=== PATIENT | female | born 2000 | race Caucasian/White ===

== ENCOUNTER 2018-05-21 08:30 | Emergency (ER) | payer OTHER ==
[2018-05-21] MEDS ORDERED: diphenhydrAMINE INJ 50 MG/ML VIAL IVP STA (09:18)
[2018-05-21] MEDS ORDERED: SODIUM CHLORIDE 0.9% 1,000 ML IV ONE (09:18)
[2018-05-21] MEDS ORDERED: KETOROLAC 60 MG/2 ML VIAL IVP STA (09:18)
[2018-05-21] MEDS ORDERED: PROCHLORPERAZINE 10 MG/2 ML VIAL IVP STA (09:18)
--- NOTE | 2018-05-21 09:21 | ED Physician Documentation ---
History of Present Illness - Stated complaint Stated Complaint: MIGRAINE - Chief complaint Chief Complaint: Neuro - Additonal information Additional information: hx from pt 17 y/o f [facility] [place] hx migraines awoke with NAVARRO today - joshua frontal throbbing similar to prior migraines but severe today no aura got worse at work has peripheral vison spots no numbness or weakness + NV no trauma no CO exposure Review of Systems Constitutional: denies: Fever, Chills Eyes: denies: Decreased vision (periph spots) Cardiac: denies: Chest pain / pressure Respiratory: denies: Cough GI: reports: Nausea, Vomiting : denies: Now EGA (denies) Neurologic: denies: Focal weakness, Numbness Endocrine: denies: Easy bruising / bleeding Immunocompromised: denies: Immunocompromised PD PAST MEDICAL HISTORY - Past Medical History Past Medical History: No Neuro: Headaches - Past Surgical History Past Surgical History: No - Present Medications Home Medications: Ambulatory Orders Medication Instructions Recorded Confirmed Norgestimate-Ethinyl Estradiol 05/21/18 [Mononessa 28 Tablet] - Allergies Allergies/Adverse Reactions: Allergies Allergy/AdvReac Type Severity Reaction Status Date / Time No Known Drug Allergies Allergy Verified 05/21/18 08:44 - Social History Does the pt smoke?: No Smoking Status: Never smoker Does the pt drink ETOH?: No Does the pt have substance abuse?: No - Immunizations Immunizations are current?: Yes PD ED PE NORMAL - Vitals Vital signs reviewed: Yes - HEENT HEENT: PERRL, EOMI, Other (globes soft no TA TTP) - Neck Neck: Supple, no meningeal sign - Cardiac Cardiac: RRR - Respiratory Respiratory: No respiratory distress, Clear bilaterally - Abdomen Abdomen: Soft, Non tender - Derm Derm: Normal color - Neuro Neuro: Alert and oriented X 3, 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, No motor deficit, No sensory deficit, Normal speech Results - Vitals Vitals: Vital Signs - 24 hr 05/21/18 05/21/18 05/21/18 08:41 09:53 10:23 Temperature 36.3 C L 36.8 C Heart Rate 88 77 Respiratory 16 14 Rate Blood Pressure 145/71 H 116/80 136/65 H O2 Saturation 96 100 Oxygen O2 Source Room air PD MEDICAL DECISION MAKING - ED course ED course: pt feels better has a ride home - Sepsis Event Vital Signs: Vital Signs - 24 hr 05/21/18 05/21/18 05/21/18 08:41 09:53 10:23 Temperature 36.3 C L 36.8 C Heart Rate 88 77 Respiratory 16 14 Rate Blood Pressure 145/71 H 116/80 136/65 H O2 Saturation 96 100 Oxygen O2 Source Room air Departure - Departure Disposition: 01 Home, Self Care Clinical Impression: Headache Qualifiers: Headache type: unspecified Headache chronicity pattern: acute headache Intractability: not intractable Qualified Code(s): R51 - Headache Condition: Good Instructions: ED Cephalgia Unspecified Follow-Up: [facility] [Provider Group] Comments: Please follow up with sara BURDEN at [place] - some people with migraines benefit from being on daily medication to prevent the headaches and/or a medication you take at the first onset of symptoms before the headache gets bad Forms: Activity restrictions
[2018-05-21 10:24] VITALS: BP 136/65
== END 2018-05-21 11:28 | disposition home or self-care (01) ==
LOC: ED 08:30
DX: R51 Headache (principal)
CPT/HCPCS: 96361; 96374; 96375; 99282; 99284; J1200

== ENCOUNTER 2019-08-12 15:21 | Emergency (ER) | payer OTHER ==
--- NOTE | 2019-08-12 15:38 | ED Physician Documentation ---
PD HPI URI - Stated complaint Stated Complaint: FLU SX - Chief complaint Chief Complaint: Fever - History obtained from History obtained from: Patient - History of Present Illness Timing - onset: How many weeks ago (3-4) Timing duration: Weeks (3-4) Timing details: Gradual onset, Still present Associated symptoms: Ear pain (behind left ear the past few days), Nasal congestion, Sore throat, Dry cough. No: Dyspnea, NVD Contributing factors: No: Sick contact Similar symptoms before: Has not had sx before Review of Systems Constitutional: reports: Chills, Myalgias Nose: reports: Congestion, Sinus pressure / pain (for several days now) Throat: reports: Sore throat Respiratory: reports: Cough GI: denies: Vomiting, Diarrhea Skin: denies: Rash, Lesions Neurologic: denies: Headache PD PAST MEDICAL HISTORY - Past Medical History Cardiovascular: None Respiratory: None Neuro: Headaches Endocrine/Autoimmune: None - Past Surgical History Past Surgical History: No - Present Medications Home Medications: Ambulatory Orders Medication Instructions Recorded Confirmed Norgestimate-Ethinyl Estradiol 05/21/18 [Mononessa 28 Tablet] Benzonatate [Tessalon Perle] 100 mg PO TID PRN #20 capsule 08/12/19 Cetirizine [ZyrTEC] 10 mg PO DAILY #15 tablet 08/12/19 Doxycycline Monohydrate 100 mg PO BID #14 tablet 08/12/19 Ibuprofen [Motrin] 600 mg PO TID PRN #25 tab 08/12/19 dexAMETHasone [Decadron] 4 mg PO DAILY #5 tablet 08/12/19 - Allergies Allergies/Adverse Reactions: Allergies Allergy/AdvReac Type Severity Reaction Status Date / Time No Known Drug Allergies Allergy Verified 08/12/19 15:29 - Social History Does the pt smoke?: No Smoking Status: Never smoker Does the pt drink ETOH?: No Does the pt have substance abuse?: No - Immunizations Immunizations are current?: Yes PD ED PE NORMAL - Vitals Vital signs reviewed: Yes - General General: Alert and oriented X 3, No acute distress, Well developed/nourished - HEENT HEENT: Ears normal, Moist mucous membranes, Pharynx benign, Other (no redness nor swelling behind ears. Mild tenderness to percussion in mastoid area. some sinus tenderness left maxillary area. ) - Neck Neck: Supple, no meningeal sign, No adenopathy - Cardiac Cardiac: RRR, No murmur - Respiratory Respiratory: Clear bilaterally - Abdomen Abdomen: Soft, Non tender - Derm Derm: Normal color, Warm and dry Results - Vitals Vitals: Vital Signs - 24 hr 08/12/19 08/12/19 15:29 16:46 Temperature 37.2 C 36.7 C Heart Rate 84 87 Respiratory 17 18 Rate Blood Pressure 119/77 132/79 H O2 Saturation 98 100 Oxygen O2 Source Room air PD MEDICAL DECISION MAKING - ED course Complexity details: considered differential, d/w patient Departure - Departure Disposition: Home, Self Care Clinical Impression: Upper respiratory infection Qualifiers: URI type: unspecified URI Qualified Code(s): J06.9 - Acute upper respiratory infection, unspecified Sinusitis Qualifiers: Sinusitis location: frontal Chronicity: acute Recurrence: non-recurrent Qualified Code(s): J01.10 - Acute frontal sinusitis, unspecified Condition: Stable Record reviewed to determine appropriate education?: Yes Instructions: ED Sinusitis Abx Tx Follow-Up: THEA SWEENEY DO [Primary Care Provider] - Prescriptions: Benzonatate [Tessalon Perle] 100 mg PO TID PRN #20 capsule PRN Reason: Cough Cetirizine [ZyrTEC] 10 mg PO DAILY #15 tablet dexAMETHasone [Decadron] 4 mg PO DAILY #5 tablet Doxycycline Monohydrate 100 mg PO BID #14 tablet Ibuprofen [Motrin] 600 mg PO TID PRN #25 tab PRN Reason: Pain Comments: stay well hydrated. Rest off work for today and tomorrow. Doxycycline antibiotic twice daily for a week. Decadron for inflammation daily for 5 more days. Cetirizine antihistamine for congestion. Tessalon if needed for cough suppression. Recheck if not improving over the next several days. Add Tylenol or ibuprofen if needed for pains or fevers. Forms: Activity restrictions Discharge Date/Time: 08/12/19 16:48
[2019-08-12] MEDS ORDERED: DEXAMETHASONE 10 MG/ML VIAL PO STA (16:14)
[2019-08-12] MEDS ORDERED: CETIRIZINE 10 MG TABLET PO STA (16:14)
[2019-08-12] MEDS ORDERED: IBUPROFEN 600 MG TABLET PO STA (16:14)
[2019-08-12] MEDS ORDERED: CHERRY SYRUP 10 ML UDC PO ONE (16:14)
[2019-08-12] MEDS ORDERED: DOXYCYCLINE 100 MG TABLET PO STA (16:14)
[2019-08-12 16:47] VITALS: BP 132/79
== END 2019-08-12 16:48 | disposition home or self-care (01) ==
LOC: ED 15:21
DX: J06.9 Acute upper respiratory infection, unspecified (principal); J01.10 Acute frontal sinusitis, unspecified
CPT/HCPCS: 99283; 99284; A9270

== ENCOUNTER 2019-10-17 11:48 | Emergency (ER) | payer OTHER ==
[2019-10-17 12:00] VITALS: BP 121/70
[2019-10-17 12:21] LABS: RAPID STREP SCREEN Negative (Negative)
--- NOTE | 2019-10-17 13:55 | ED Physician Documentation ---
History of Present Illness - Stated complaint Stated Complaint: FLU LIKE SYMPTOMS - Chief complaint Chief Complaint: General - History obtained from History obtained from: Patient - History of Present Illness Timing: How many days ago (2) Pain level max: 2 Pain level now: 1 - Additonal information Additional information: 18-year-old female presents to the emergency department with a cough congestion and sore throat for the past few days. She states she was exposed to someone with strep pharyngitis. Patient states she [place] to be [place], but they told her to come here instead as they had no appointments. Has not taken anything for her symptoms. Nothing makes it better or worse. No vomi ting. 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 : None HEENT: None Psych: None Musculoskeletal: None Derm: None - Past Surgical History Past Surgical History: No - Present Medications Home Medications: Ambulatory Orders Medication Instructions Recorded Confirmed Norgestimate-Ethinyl Estradiol 05/21/18 [Mononessa 28 Tablet] Benzonatate [Tessalon Perle] 100 mg PO TID PRN #20 capsule 08/12/19 Cetirizine [ZyrTEC] 10 mg PO DAILY #15 tablet 08/12/19 Doxycycline Monohydrate 100 mg PO BID #14 tablet 08/12/19 Ibuprofen [Motrin] 600 mg PO TID PRN #25 tab 08/12/19 dexAMETHasone [Decadron] 4 mg PO DAILY #5 tablet 08/12/19 Benzonatate [Tessalon Perle] 100 - 200 mg PO TID PRN #30 capsule 10/17/19 Cetirizine HCl/Pseudoephedrine 1 each PO BID PRN #30 tab.er.12h 10/17/19 [Zyrtec-D Tablet] - Allergies Allergies/Adverse Reactions: Allergies Allergy/AdvReac Type Severity Reaction Status Date / Time No Known Drug Allergies Allergy Verified 10/17/19 11:56 - Social History Does the pt smoke?: No Smoking Status: Never smoker Does the pt drink ETOH?: No Does the pt have substance abuse?: No - Immunizations Immunizations are current?: Yes - POLST Patient has POLST: No PD ED PE NORMAL - Vitals Vital signs reviewed: Yes - General General: Alert and oriented X 3, No acute distress - HEENT HEENT: Ears normal, Moist mucous membranes, Pharynx benign - Neck Neck: Supple, no meningeal sign - Cardiac Cardiac: RRR - Respiratory Respiratory: No respiratory distress, Clear bilaterally - Abdomen Abdomen: Soft, Non tender, Non distended - Derm Derm: Warm and dry, No rash - Extremities Extremities: No edema - Neuro Neuro: Alert and oriented X 3 - Psych Psych: Normal mood, Normal affect Results - Vitals Vitals: Vital Signs - 24 hr 10/17/19 11:56 Temperature 36.8 C Heart Rate 75 Respiratory 14 Rate Blood Pressure 121/70 O2 Saturation 98 Oxygen O2 Source Room air - Labs Labs: Laboratory Tests 10/17/19 12:00 Group A Strep Rapid Negative PD MEDICAL DECISION MAKING - ED course Complexity details: considered differential, d/w patient ED course: Patient is well-appearing, nontoxic. Afebrile. No hypoxia. No respiratory distress. Negative rapid strep. We will treat as a viral URI. Patient counseled regarding signs and symptoms for which I believe and urgent re- evaluation would be necessary. Patient with good understanding of and agreement to plan and is comfortable going home at this time This document was made in part using voice recognition software. While efforts are made to proofread this document, sound alike and grammatical errors may occur. Departure - Departure Disposition: 01 Home, Self Care Clinical Impression: Upper respiratory infection Qualifiers: URI type: unspecified URI Qualified Code(s): J06.9 - Acute upper respiratory infection, unspecified Condition: Good Instructions: ED URI Viral Follow-Up: THEA SWEENEY DO [Primary Care Provider] - Within 1 week Prescriptions: Benzonatate [Tessalon Perle] 100 - 200 mg PO TID PRN #30 capsule PRN Reason: Cough Cetirizine HCl/Pseudoephedrine [Zyrtec-D Tablet] 1 each PO BID PRN #30 tab.er.12h PRN Reason: nasal congestion Comments: Use the medications as needed. Drink plenty of fluids. This will likely last 1-2 weeks. Return if you worsen. Forms: Activity restrictions
== END 2019-10-17 14:09 | disposition home or self-care (01) ==
LOC: ED 11:48
DX: J06.9 Acute upper respiratory infection, unspecified (principal)
CPT/HCPCS: 87070; 87430; 99283; 99284

== ENCOUNTER 2021-05-31 01:13 | Emergency (ER) | payer OTHER ==
--- NOTE | 2021-05-31 01:54 | ED Physician Documentation ---
PD HPI UPPER EXT INJURY - Stated complaint Stated Complaint: Josee HANEY INJURY - Chief complaint Chief Complaint: Ext Problem - History obtained from History obtained from: Patient - History of Present Illness Location: Left, Hand Type of injury: Blunt / blow Where injury occurred: Home Timing - onset: Today Timing - duration: Minutes Timing - details: Abrupt onset, Still present Improved by: Rest, Ice, Immobilization Worsened by: Moving, Palpating Associated symptoms: Swelling. No: Weakness, Numbness, Tingling Contributing factors: No: Anticoagulated Similar symptoms before: Has not had sx before Recently seen: Not recently seen - Additonal information Additional information: Previously well 20-year-old female Indicates that she dropped a 15 pound weight onto her left hand from a shelf overhead. This injured her hand right over the distal end of the fifth metacarpal on the left hand. She is having trouble flexing and extending her finger secondary to pain in that portion of her hand. She has been minimal swelling associated with this. She has improvement in her pain with immobilization. 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 : None HEENT: None Psych: None Musculoskeletal: None Derm: None - Past Surgical History Past Surgical History: Yes Ortho: Arthroscopic surgery - Present Medications Home Medications: Ambulatory Orders Medication Instructions Recorded Confirmed No Known Home Medications 05/31/21 05/31/21 - Allergies Allergies/Adverse Reactions: Allergies Allergy/AdvReac Type Severity Reaction Status Date / Time No Known Drug Allergies Allergy Verified 05/31/21 01:35 - Social History Does the pt smoke?: No Smoking Status: Never smoker Does the pt drink ETOH?: No Does the pt have substance abuse?: No - Immunizations Immunizations are current?: Yes - POLST Patient has POLST: No PD ED PE NORMAL - Vitals Vital signs reviewed: Yes (tachy and hypertensive ) - General General: Alert and oriented X 3, No acute distress, Well developed/nourished, Other (holding the left hand favoring the 4th and 5th digits ) - HEENT HEENT: Atraumatic, PERRL, EOMI - Respiratory Respiratory: No respiratory distress - Derm Derm: Normal color, Warm and dry, No rash - Extremities Extremities: No deformity, No edema, Other (marked tenderness to the palmar surface of the left hand over the distal left 5th metacarpal. No deformity or crepitance distal n/v intact. reduced ROM secondary to pain. ) - Neuro Neuro: Alert and oriented X 3, snowboarder 2-12 intact, No motor deficit, No sensory deficit, Normal speech Eye Opening: Spontaneous Motor: Obeys Commands Verbal: Oriented GCS Score: 15 - Psych Psych: Normal mood, Normal affect Results - Vitals Vitals: Vital Signs - 24 hr 05/31/21 05/31/21 05/31/21 01:28 01:36 02:57 Temperature 36.0 C L 36 C L 36.2 C L Heart Rate 108 H 108 H 82 Respiratory 18 18 17 Rate Blood Pressure 135/98 H 135/98 H 131/85 H O2 Saturation 95 95 97 Oxygen O2 Source Room air - Rads (name of study) hand Radiology: Prelim report reviewed (Impression: 1. No acute findings. No fracture or dislocation involving left hand.), EMP read indepedently (no fracture. ), See rad report Procedures - Splint (location) left hand Splint applied by: Tech Type of splint: Fiberglass, Ulnar gutter Other: Patient tolerated well, No complications, Neurovascular intact, Good alignment PD MEDICAL DECISION MAKING - ED course Complexity details: considered differential, d/w patient ED course: 20-year-old female with a contusion to her left hand has contused right over the flexor tendon of the fifth digit on the hand and she has some reduced range of motion secondary to this. She is placed into an ulnar gutter splint and instructed to wear this for 1 to 2 weeks and may only need 1 to 2 days. Departure - Departure Disposition: 01 Home, Self Care Clinical Impression: Contusion of left hand Qualifiers: Encounter type: initial encounter Qualified Code(s): S60.222A - Contusion of left hand, initial encounter Condition: Stable Instructions: ED Contusion Hand Follow-Up: [facility] [Provider Group] Forms: Activity restrictions Discharge Date/Time: 05/31/21 02:57
[2021-05-31 02:59] VITALS: BP 131/85
--- NOTE | 2021-05-31 08:44 | XRAY Report ---
PROCEDURE: Hand 3 View LT INDICATIONS: left pinky injury TECHNIQUE: 3 views of the hand(s) acquired. COMPARISON: None. FINDINGS: Bones: No fractures or dislocations. No suspicious bony lesions. Soft tissues: No suspicious soft tissue calcifications. IMPRESSION: No acute findings. Findings are concordant with the preliminary study interpretation provided at the time of the study. Reviewed by: Jarrell Bear MD on 05/31/2021 8:43 AM PDT Approved by: Jarrell Bear MD on 05/31/2021 8:43 AM PDT Station ID: [id number]
== END 2021-05-31 02:57 | disposition home or self-care (01) ==
LOC: ED 01:13
DX: S60.222A Contusion of left hand, initial encounter (principal); W21.89XA Striking against or struck by other sports equipment, initial encounter; Y92.009 Unspecified place in unspecified non-institutional (private) residence as the place of occurrence of the external cause
CPT/HCPCS: 29125; 99282; 99283

== ENCOUNTER 2023-04-20 12:23 | Emergency (ER) | payer OTHER ==
[2023-04-20 13:16] LABS: BILIRUBIN,URINE NEGATIVE (NEGATIVE); GLUCOSE, URINE (UA) NEGATIVE (NEGATIVE); KETONES,URINE (UA) NEGATIVE (NEGATIVE); LEUKOCYTE ESTERASE, URINE NEGATIVE (NEGATIVE); NITRITE,URINE NEGATIVE (NEGATIVE); OCCULT BLOOD,URINE SMALL (NEGATIVE); PH,URINE 7.5 PH (5.0-7.5); PROTEIN,URINE NEGATIVE (NEGATIVE); UROBILINOGEN,URINE 1 (NORMAL) E.U./dL (NORMAL)
[2023-04-20 13:19] LABS: CLARITY,URINE CLEAR (CLEAR); HCG UR QUAL NEGATIVE
[2023-04-20 13:40] LABS: BACTERIA,URINE Few /HPF (None Seen); RBC,URINE 0-5 /HPF (0-5); SQUAMOUS EPITHELIAL CELL,UR FEW Squamous (<= Few); WBC,URINE 0-3 /HPF (0-5)
[2023-04-20 13:41] LABS: AMORPHOUS SEDIMENT,UR Moderate /LPF
--- NOTE | 2023-04-20 14:00 | ED Physician Documentation ---
History of Present Illness - Stated complaint Stated Complaint: - Chief complaint Chief Complaint: General - History obtained from History obtained from: Patient - Additonal information Additional information: She has a possible history of endometriosis. Had hormonal IUD removed mid February. Had a period about a week later and then subsequently started a few days ago. Had a foreign body come out of her vagina today. Bleeding is slightly in excess of usual menses. 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 : None HEENT: None Psych: None Musculoskeletal: None Derm: None - Past Surgical History Past Surgical History: Yes Ortho: Arthroscopic surgery - Present Medications Home Medications: Ambulatory Orders Medication Instructions Recorded Confirmed No122/Iron/Folic Acid 1 each PO DAILY 04/20/23 04/20/23 [ Multi Tablet] - Allergies Allergies/Adverse Reactions: Allergies Allergy/AdvReac Type Severity Reaction Status Date / Time No Known Drug Allergies Allergy Verified 04/20/23 12:43 - Social History Does the pt smoke?: No Smoking Status: Never smoker Does the pt drink ETOH?: No Does the pt have substance abuse?: No - Immunizations Immunizations are current?: Yes - POLST Patient has POLST: No PD ED PE NORMAL - Vitals Vital signs reviewed: Yes - General General: Alert and oriented X 3, No acute distress - Abdomen Abdomen: Soft, Non tender - Female Female : Other (She presents material in a Ziploc bag that looks like a small translucent slug. Presume endometrial cast.) Results - Vitals Vitals: Vital Signs - 24 hr 04/20/23 12:38 Temperature 37.1 C Heart Rate 82 Respiratory 20 Rate Blood Pressure 142/100 H O2 Saturation 98 Oxygen O2 Source Room air - Labs Labs: Laboratory Tests 04/20/23 12:45 Urine Color YELLOW Urine Clarity CLEAR Urine pH 7.5 Ur Specific Sparks 1.020 Urine Protein NEGATIVE Urine Glucose (UA) NEGATIVE Urine Ketones NEGATIVE Urine Occult Blood SMALL H Urine Nitrite NEGATIVE Urine Bilirubin NEGATIVE Urine Urobilinogen 1 (NORMAL) Ur Leukocyte Esterase NEGATIVE Urine RBC 0-5 Urine WBC 0-3 Ur Squamous Epith Cells FEW Squamous Amorphous Sediment Moderate Urine Bacteria Few Ur Microscopic Review INDICATED Urine Culture Comments NOT INDICATED Urine HCG, Qual NEGATIVE PD Medical Decision Making - ED course ED course: 22-year-old presents with slightly excess cramping and bleeding in menses associated with material that came out of her vagina that I presume is a uterine cast. Ultrasound per the RDMS was normal with the exception of a very small right ovarian cyst. test negative. Departure - Departure Disposition: 01 Home, Self Care Clinical Impression: Vaginal discharge Condition: Good Record reviewed to determine appropriate education?: Yes Comments: The material you presented was sent to the pathologist for examination. I presume it is a endometrial cast, but you can look up the formal results, usually in about a week, in the patient portal at the [email or web address] website. Ultrasound was fairly normal, showed a very small cyst on one ovary, follow-up with your flight surgeon, they may want to get an ultrasound in 6 weeks or so to document resolution. Return for new or worsening symptoms. Forms: PCP List
[2023-04-20 15:00] VITALS: BP 126/109; O2SAT 94
--- NOTE | 2023-04-20 15:27 | Ultrasound Report ---
PROCEDURE: Pelvic w/Transvag+Doppler Comp INDICATIONS: pelvic pain TECHNIQUE: Real-time scanning was performed of the pelvic organs, with image documentation. Additional endovagi nal scanning was necessary due to incomplete visualization of the adnexal and endometrial structures by transabdominal scanning. Doppler interrogation was performed of the ovaries bilaterally. COMPARISON: None. FINDINGS: Uterus: Uterus is anteverted and normal in size at 6.7 x 3.7 x 4.8 cm. The myometrium is heterogeno us. The endometrium measures 3 mm in combined thickness. Ovaries: The right ovary measures 3.5 x 2.2 x 1.9 cm, with a calculated ovarian volume of 7.5 cc. T he left ovary measures 2.5 x 2.0 x 1.6 cm, with a calculated ovarian volume of 4. cc. Right ovarian complicated cyst with debris measures 1.3 x 2.2 x 1.4 cm Less than 12 follicles can be seen in each o vary. No adnexal masses are seen. No cystic lesions measuring greater than 3 cm. Other: No free fluid in the pelvis IMPRESSION: Right ovarian corticated cyst, 2.2 cm Reviewed by: Louis Espinal MD on 04/20/2023 2:26 PM AKTALA Approved by: Louis Espinal MD on 04/20/2023 2:26 PM AKDT Station ID: [id number]
== END 2023-04-20 14:55 | disposition home or self-care (01) ==
LOC: ED 12:23
DX: N89.8 Other specified noninflammatory disorders of vagina (principal)
CPT/HCPCS: 81001; 81003; 81025; 87086; 93975; 99283; 99284

== ENCOUNTER 2023-06-11 13:41 | Outpatient (CLI) | payer OTHER ==
--- NOTE | 2023-06-11 21:40 | SLEEP CARE CONSULTATION ---
Information from patient questionnaire entered by Cherelle Hermosillo. I have reviewed and concur with the information entered by Cherelle Hermosillo. This document represents the service I personally performed and the decisions made by me, Haris Greer MD, [facility]. History of Present Illness Service Date and Time: 06/11/2023 1341 Reason for Visit: New patient Chief Complaint: reports: Insomnia, Unrefreshed sleep, Snoring, Observed pauses in breathing, Fatigue, Frequent awakenings at night Date of Onset: LAST FEW YRS Usual bedtime: 2100 Time it takes to fall asleep: 1-2 Snores at night: Yes Observed to quit breathing while asleep: Yes Sleeps alone due to snoring: No Number of times waking at night: 5-7 Reasons for waking at night: reports: Snoring, Other (UNKNOWN) Toss, Turn, or Twitch while sleeping: Yes Recalls having dreams: Yes Usually gets out of bed at: 0500 Feels refreshed in the morning: No Morning headache: Yes Sleepy or fatigued during the day: Yes Ever fallen asleep while driving: No Takes day naps: No Dreams during day naps: Yes Prior sleep studies: No Additional HPI information: I have the pleasure of seeing Ms. Rich and her today regarding the possibility of her having obstructive sleep apnea. As you know, she is a 22-year-old lady who complains of loud snores, observed apneas, frequent awakenings, unrefreshed sleep, and persistent fatigue for the past few years. The patient tells me that she normally goes to bed around 9 pm, and it takes her approximately 1 - 2 minutes to fall asleep. She has been told that she snores loudly and irregularly at night. She has also been observed to stop breathing in her sleep. Her sleeps in the same bed. She can recall waking up on the average of 5 - 7 times during the night. Most of the time she wakes up because of unknown reason. She has awakened occasionally because of her own snoring, choking, and having to gasp for air. There is a lot of tossing and turning in her sleep. No somniloquy (sleep talking) or somnambulism (sleep walking). Generally, she can recall having dreams. In the morning she usually gets up out of the bed around 5 a.m. not feeling refreshed nor rested. She usually has a morning headache that goes away after 1 2 hours. During the day she complains of feeling sleepy and fatigued. Her score on [place] Sleepiness Scale is 5 out of 24. She never has fallen asleep while driving nor has had any accident due to sleepiness. She usually does not take naps during the day. She reports having impaired concentration during the day. - Parasomnia Symptoms Ever been unable to move upon waking from sleep: Yes Walks in sleep: No Talks in sleep: No Ever acted out dreams in sleep: Yes Ever felt weak in the knees when startled or emotional: Yes Bothered by creepy, crawly, restless sensations in legs: No Problems with memory or concentration: No Subjective Initial [place] Sleepiness Scale score: 5 (06/11/23) Past Medical History Past Medical History: reports: Anxiety Social History The patient's occupation is a [employer]. Patient is Single and lives in . Have you smoked in the past 12 months: No Alcohol use: Yes Alcohol amount and frequency: 1-2 DRINKS LESS THAN MONTHLY Caffeine use: Yes Caffeine amount and frequency: 1 1-2 TIMES A WEEK Family History Family history of sleep disordered breathing: No Allergies and Home Medications Known drug allergies: No Drug allergies reviewed: Yes Home medication list reviewed: Yes Allergy and home medication list: Allergies No Known Drug Allergies Allergy (Verified 06/08/23 14:04) Review of Systems Weight loss over past 5 years: 20 Cardiovascular: denies: high blood pressure, palpitations, chest pain, irregular heart rate or pulse, leg or foot swelling, have to sleep sitting up, other Respiratory: denies: shortness of breath, wheeze, sputum production, chronic cough, other Gastrointestinal: denies: heartburn, difficulty swallowing, nausea, vomitting, diarrhea, abdominal pain, other Neurological: reports: headaches. denies: seizure, head trauma, disorientation, speech dysfunction, gait or balance problems, fainting or unconsciousness, other Psychiatric: reports: anxiety Ear/Nose/Throat: denies: nasal congestion, sinus problems, nose bleeds, dry mouth/throat, hoarseness, injury to nose, tonsillectomy, wisdom teeth removed, other Endocrine: denies: thyroid disease, history of goiter, sluggishness, too hot or cold, excessive thirst, increased appetite, increased urination, unexplained weakness, other Musculoskeletal: denies: joint pain, neck pain, back pain, joint swelling, muscle pain or cramping, mobility problems, other Immunologic: reports: sneezing Physical Exam Vital signs obtained and entered by: CHERELLE Benitez MA Blood Pressure: 116/72 (LEFT ARM) Cuff size: regular Heart Rate: 8 O2 Saturation: 99 Height: 5 ft 4 in Weight: 2246 lb Body Mass Index: 385.5 BMI Classification: Morbidly Obese Neck circumference: 15.5 Mood/affect: Normal HEENT: No craniofacial malformation Nostrils: patent to airflow Turbinates: normal Septum: midline Mouth and throat: narrow oropharynx Soft palate: long Hard palate: normal Uvula: normal Uvula visualization: 50% Mallampati Class II Tongue: normal in size Tonsils: absent bilaterally Chin and jaw: normal size and position Neck: normal w/o lymphadenopathy or thyromegaly Heart: regular rate and rhythm Lungs: clear bilaterally Extremities: no edema or clubbing Neurologic: intact Impression and Plan IMPRESSION: 1. Obstructive Sleep Apnea-Hypopnea Syndrome, as evident by history of loud and irregular snoring, observed cessation of breath while asleep, frequent awakenings during the night, unrefreshed sleep, morning headache, cognitive impairment, and daytime hypersomnolence. Narrow oropharynx and obesity are common predisposing factors for obstructive sleep apnea-hypopnea syndrome. I recommend proceeding to polysomnography to confirm the diagnosis and to assess severity. If she has significant sleep disordered breathing, a manual CPAP titration study will also be performed to find the optimal treatment pressure. I informed the patient of what the sleep studies involve and after some discus anabell, she agreed to proceed. 2. 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 Because she gets up spontaneously between 7 8 am on weekends, her physiologic bedtime is not until 11 pm, assuming the normal sleep requirement of 8 hours a night. Therefore, going to bed at 9 pm is 2 hours too early, and, hence the sleep onset insomnia. The solution is for her to keep a consistent wakeup time. Plan: 1. Schedule polysomnography and return in 1 to 2 weeks after the study to discuss the results and further treatment plan. 2. Avoid long distance driving or when feeling sleepy. 3. Avoid alcohol, sedative and muscle relaxant around bedtime. 4. Attempt to lose weight. Follow up with Sleep Care in: 1-2 months Visit Type: In Office Other Participants: Spouse/Significant Other Time Spent with Patient (minutes): 15 Provider Statement: I spent 100% of the Face to Face Visit with the patient with greater than 50% spent counseling the patient and coordination of care.
[2023-06-11 21:42] VITALS: BP 116/72; O2SAT 99
== END 2023-06-11 13:42 | disposition home or self-care (01) ==
LOC: SC 13:41
PROVIDERS: ATTEND Internal Medicine Pulmonary Disease
DX: R06.83 Snoring (principal); G47.8 Other sleep disorders; R06.81 Apnea, not elsewhere classified; R51.9 Headache, unspecified; R53.83 Other fatigue; E66.9 Obesity, unspecified
CPT/HCPCS: 99202; 99212

== ENCOUNTER 2023-06-30 20:28 | Outpatient (CLI) | payer OTHER | END 2023-06-30 20:29 | disposition home or self-care (01) | LOC: SC 20:28 | PROVIDERS: ATTEND Internal Medicine Pulmonary Disease | DX: G47.8 Other sleep disorders (principal) | CPT/HCPCS: 95810 ==

== ENCOUNTER 2023-07-09 15:26 | Outpatient (CLI) | payer OTHER ==
--- NOTE | 2023-07-09 21:05 | SLEEP CARE CONSULTATION ---
Information from patient questionnaire entered by Cherelle Hermosillo. I have reviewed and concur with the information entered by Cherelle Hermosillo. This document represents the service I personally performed and the decisions made by me, Haris Greer MD, [facility]. History of Present Illness Service Date and Time: 07/09/2023 1526 Current [place] Sleepiness Scale score: 9 (07/09/23) Additional HPI information: Ms. Rich returned for follow up of the sleep study she had on 06/30/2023. The polysomnography showed that the patient had minimally reduced sleep efficiency. The sleep architecture was abnormal for sleep fragmentation and reduced amount of time spent in REM sleep. Respiratory monitoring showed evidence of upper airway resistance syndrome (AHI = 1.4 and RDI = 17.4) associated with frequent arousals, oxyhemoglobin desaturation but no hypoxia (torres oxygen saturation of 91%). The patient only slept supine during this study (supine AHI = 1.5; non- supine = 0.00). Snore was moderate to loud in intensity. There was no significant periodic leg movement of sleep. Cardiac rhythm was normal sinus rhythm without significant arrhythmia. No abnormal behavior (parasomnia) observed during the night. The patient was informed of these findings. I explained to her the pathophysiology behind obstructive sleep apnea and upper airway resistance syndrome. We then spent quite a bit of time discussing different treatment options. For mild obstructive sleep apnea, surgery and oral appliance are alternatives to nasal CPAP therapy but in moderate or severe cases, nasal CPAP is the most effective and reliable treatment. After some discussion, she opted to go with the nasal CPAP therapy. I explained to her how CPAP machine works and what to expect when using the machine. She is encouraged to use CPAP every night, especially in the first 2 to 3 nights in order to get used to it. She should call me or her CPAP supplier to discuss any mechanical problem that may occur. Sleep Study - Results Type of Sleep Study: Polysomnography (COMPLETED 07/10/23) Allergies and Home Medications Drug allergies reviewed: Yes Home medication list reviewed: Yes Allergy and home medication list: Allergies No Known Drug Allergies Allergy (Verified 07/09/23 07:52) Review of Systems Review of systems same as previous: Yes Physical Exam Vital signs obtained and entered by: CHERELLE Benitez MA Height: 5 ft 5 in Weight: 200 lb Body Mass Index: 33.3 BMI Classification: Obese Impression and Plan IMPRESSION: 1. Upper airway resistance syndrome, causing sleep disruption. Because she is symptomatic for excessive daytime sleepiness, fatigue, frequent awakening, insomnia, morning headaches, obesity, snoring, and unrefreshed sleep, I will start her on a trial of CPAP therapy set at 4 12 cmH2O. The patient has just recently moved to [place], and, therefore will to use a durable medical supplier that is available nationwide. PLAN: 1. Prescription made for an autoCPAP, heated humidifier, and related supplies through [facility]. 2. Attempt to lose weight. 3. Follow up with a sleep physician in her area. 4. Call us with any problems in the meantime. Prescriptions: Auto CPAP Follow up with Sleep Care in: as needed Visit Type: Telehealth Video Video Type: Doximity Time Spent with Patient (minutes): 15 Provider Statement: I spent 100% of the Telehealth Video Call with the patient with greater than 50% spent counseling the patient and coordination of care.
== END 2023-07-09 15:27 | disposition home or self-care (01) ==
LOC: SC 15:26
PROVIDERS: ATTEND Internal Medicine Pulmonary Disease
DX: G47.8 Other sleep disorders (principal); E66.9 Obesity, unspecified; Z68.33 Body mass index [BMI] 33.0-33.9, adult
CPT/HCPCS: 95810